=== PATIENT | female | born 1955 | race Caucasian/White ===

== ENCOUNTER → 2016-07-30 | Outpatient (CLI) | payer OTHER ==
[~2016-07-30] MED LIST: CELEXA20 MG PO; CPAP; DELTASONE1 MG PO; DIAMOX SEQUE500 MG PO; FISH OIL 1,0001 EACH PO; FOLIC ACID1 MG PO; HUMIRA 4040 MG/0.8 SUB-Q; IPRAT-ALBUT 0.5-3 ML; LIPITOR40 MG PO; LISINOPRIL-HCT1 EAC1 PO; METHOTREXATE (2.5 MG PO; NORCO 5-325 TA1 EACH PO; OXYGEN M-15; WOMEN'S DAILY1 EACH PO; ZYRTEC10 M3 PO
--- NOTE | ~2016-07-30 | PUL ---
PATIENT'S NAME: MONICA LEO [facility] AGE: 61 Y [address] ROOM: [place] [id number] LOCATION: [facility] ADMIT DATE: 07/30/2016 Pulmonary DISCHARGE DATE: FAMILY PHYSICIAN: Kevin Monzon MD ATTENDING PHYSICIAN: MICAH DELACRUZ NAME OF PROCEDURE: Six Minute Walk Test DATE OF PROCEDURE: July 30, 2016 TECH: ATripe, FLOORPERSON REASON FOR EXAM: COPD RESULTS: The test was performed on room air. The patient walked for 950 feet at a pace of 1.8 miles/hour. Her oxygen saturation at the beginning of the test was 96%, then dropped to the lowest of 84% during the test, and was 92% after the test. She had significant increases in her heart rate and blood pressure. Her perceived dyspnea was 5/10 on the Cecil scale. She had two periods of rest. PHYSICIAN INTERPRETATION: The patient has moderate limitation in her exercise capacity with significant desaturation and hypoxia on room air during exercise. MD EMILIANO PENDLETON/yoana /[id number] dtt: 08/05/16 1947 NUBIA RADU F dtd: 08/01/16 1117
--- NOTE | ~2016-07-30 | PUL ---
PATIENT'S NAME: MONICA LEO [facility] AGE: 61 Y [address] 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 FVC was 1.84 liters which is 51% and low, FEV1 was 1.19 liters which is 43% of predicted and low, and FEV1/FVC was 65% and low. The flow volume curve revealed significant airflow limitation. After bronchodilator administration FVC increased to 1.97 liters which is a 7% increase and FEV1 increased to 1.27 liters which is a 7% increase. FEV1/FVC was 65%. 2. DLCO and adjusted DLCO were 19 which is 60% of predicted and low. 3. Total lung capacity was 4.8 liters which is 90% of predicted and normal, and residual volume was 2.6 liters which is 130% of predicted and normal. 4. pH was 7.43, pCO2 was 47, PO2 was 66 while on room air. The base excess was 5.9. PHYSICIAN INTERPRETATION: The patient has severe airflow limitation without a significant bronchodilator response. Her diffusion capacity is mildly low. There is no evidence of restrictive lung disease. She has metabolic alkalosis with adequate respiratory compensation and no hypoxia while at rest on room air. MD EMILIANO PENDLETON/yoana /[id number] dtt: 08/05/16 1944 , MICAH DELACRUZ dtd: 08/01/16 1112
[2016-07-30 13:11] LABS: BICARBONATE 31.2 mmol/L (18.0-23.0); PCO2 47 mmHg (35-45); PO2 66 mmHg (80-90)
== END | disposition disaster alternative care site (69) ==
LOC: GRTH 12:43
PROVIDERS: Internal Medicine Critical Care Medicine
DX: J44.9 Chronic obstructive pulmonary disease, unspecified (principal); R09.02 Hypoxemia